=== PATIENT | male | born 1960 | race Caucasian/White ===

== ENCOUNTER 2018-07-02 14:50 | Outpatient (CLI) | payer OTHER | END 2018-07-02 14:52 | LOC: NEPHRO 14:50 | PROVIDERS: ATTEND Internal Medicine Nephrology | DX: Q61.2 Polycystic kidney, adult type (principal); I10 Essential (primary) hypertension | CPT/HCPCS: 99213 ==

== ENCOUNTER 2019-08-19 15:15 | Outpatient (CLI) | payer OTHER | END 2019-08-19 15:45 | LOC: NEPHRO 15:15 | PROVIDERS: ATTEND Internal Medicine Nephrology | DX: Q61.2 Polycystic kidney, adult type (principal); I10 Essential (primary) hypertension | CPT/HCPCS: 99213 ==